=== PATIENT | female | born 1960 | race Caucasian/White ===

== ENCOUNTER 2017-07-17 16:55 | Emergency (ER) | payer MEDICAID, MEDICARE ==
[~2017-07-17] VITALS: Ht 157.5 cm; Wt 84.8 kg
[2017-07-17 17:04] VITALS: BP 107/67
== END 2017-07-17 18:15 | disposition home or self-care (01) ==
LOC: ED 18:00
DX: S90.121A Contusion of right lesser toe(s) without damage to nail, initial encounter (principal); F31.9 Bipolar disorder, unspecified; F20.9 Schizophrenia, unspecified; W22.8XXA Striking against or struck by other objects, initial encounter; Y93.89 Activity, other specified; Y92.89 Other specified places as the place of occurrence of the external cause; Y99.8 Other external cause status
CPT/HCPCS: 82962; 99284